=== PATIENT | male | born 1950 | race American Indian/Alaskan Native ===

== ENCOUNTER 2016-10-05 12:11 | Emergency (ER) | payer MEDICARE ==
[2016-10-05] MEDS ORDERED: NORCO 5/325 PO ONE (17:25)
[2016-10-05 17:40] LABS: Basophils % (Auto) 0.4 % (0.0-1.8); Eosinophils % (Auto) 0.8 % (0.0-4.3); Hematocrit 35.3 % (35.5-45.6); Hemoglobin 11.5 gm/dl (11.8-15.2); Mean Corpuscular HGB Conc 33 % (32-34); Mean Corpuscular Hemoglobin 32 pg (28-32); Mean Corpuscular Volume 99 fl (84-94); Platelet Count 185 K/mm3 (140-440); Red Blood Count 3.58 M/mm3 (3.65-5.03); Red Cell Distribution Width 15.6 % (13.2-15.2); White Blood Count 5.7 K/mm3 (4.5-11.0)
--- NOTE | 2016-10-05 17:42 | Emergency Department Report ---
ED General Adult HPI - General Chief complaint: Pain General Stated complaint: LEFT SIDE/FEET/TESTICLES Time Seen by Provider: 10/05/16 17:10 Source: patient, family Mode of arrival: Ambulatory Limitations: Other (dementia) - History of Present Illness Initial comments: 66-year-old male with a past medical history hypertension, end-stage renal disease on dialysis, insulin-dependent diabetes, and dementia presents to the hospital complains of left-sided pain for the past 5 days. Pain is either at the left lower chest wall left abdomen. Intermittent, worse with movement, unable to characterize pain. Patient has significant dementia and is only oriented to self and states year is [address] [facility]. His is at the bedside providing most of history of present illness. Patient currently denies any pain other than pain to his bilateral feet. Past medical history of diabetic neuropathy reported. No recent trauma, shortness of breath, nausea, vomiting, melena, hematochezia, or fever. Patient does not make urine since he is a dialysis patient and has been compliant with last dialysis yesterday. No previous abdominal surgeries reported. And a bilateral testicular pain for the last 5 days as well. Patient has been unable to ambulate due to pain in feet and abdomen. PMD: Dr. Eliana Diaz, stratigrapher : Dr. Hector, commissioning agent: Dr. Canales - Related Data Home Medications Medication Instructions Recorded Confirmed Last Taken Allopurinol [Zyloprim] 300 mg PO QDAY 01/12/16 10/05/16 10/04/16 Donepezil HCl 10 mg PO HS 01/12/16 10/05/16 10/04/16 Sevelamer Carbonate [Renvela] 800 mg PO TIDWM 01/12/16 10/05/16 10/04/16 Sodium Bicarbonate 650 mg PO BID 01/12/16 10/05/16 10/04/16 Vitamin B Complex [B Complex] 1 each PO DAILY 01/12/16 10/05/16 10/04/16 Aspirin [Adult Low Dose Aspirin EC] 81 mg PO QDAY 10/05/16 10/05/16 10/04/16 AtorvaSTATin [Lipitor] 80 mg PO QDAY 10/05/16 10/05/16 10/04/16 Gabapentin [Neurontin] 300 mg PO BID 10/05/16 10/05/16 10/04/16 Losartan [Cozaar] 50 mg PO QDAY 10/05/16 10/05/16 10/04/16 Metoprolol [Lopressor TAB] 25 mg PO BID 10/05/16 10/05/16 10/04/16 Vitamin D3 Complete Caplet 1 cap PO QDAY 10/05/16 10/05/16 10/04/16 Previous Rx's Medication Instructions Recorded Last Taken Type amLODIPine [Norvasc] 10 mg PO QDAY #30 tablet 12/09/13 10/04/16 Rx HYDROcodone/APAP 5-325 [Lebec 1 each PO Q6HR PRN #14 tablet 10/05/16 Unknown Rx 5/325] Allergies Allergy/AdvReac Type Severity Reaction Status Date / Time No Known Allergies Allergy Unverified 12/01/13 10:54 ED Review of Systems ROS: Stated complaint: LEFT SIDE/FEET/TESTICLES Other details as noted in HPI Comment: All other systems reviewed and negative Other: with help of Constitutional: No fevers Neck: Denies pain Respiratory: Denies cough wheezing shortness of breath Cardiovascular: as per hpi GI: as per hpi : as per hpi Musculoskeletal: Denies back pain Skin: Denies rash, lesions, erythema Neurologic: Denies headache ED Past Medical Hx - Past Medical History Hx Hypertension: Yes Hx Heart Attack/AMI: Yes Hx Diabetes: Yes Hx Renal Disease: Yes (t,thr,sat dialysis) Hx Arthritis: Yes Hx Dementia: Yes (Dx of early dementia 2013) Additional medical history: echo 12/2015, EF 50% diastolic dysfunction see report for valve findings - Social History Smoking Status: Never Smoker - Medications Home Medications: Home Medications Medication Instructions Recorded Confirmed Last Taken Type amLODIPine [Norvasc] 10 mg PO QDAY #30 tablet 12/09/13 10/05/16 10/04/16 Rx Allopurinol [Zyloprim] 300 mg PO QDAY 01/12/16 10/05/16 10/04/16 History Donepezil HCl 10 mg PO HS 01/12/16 10/05/16 10/04/16 History Sevelamer Carbonate [Renvela] 800 mg PO TIDWM 01/12/16 10/05/16 10/04/16 History Sodium Bicarbonate 650 mg PO BID 01/12/16 10/05/16 10/04/16 History Vitamin B Complex [B Complex] 1 each PO DAILY 01/12/16 10/05/16 10/04/16 History Aspirin [Adult Low Dose Aspirin EC] 81 mg PO QDAY 10/05/16 10/05/16 10/04/16 History AtorvaSTATin [Lipitor] 80 mg PO QDAY 10/05/16 10/05/16 10/04/16 History Gabapentin [Neurontin] 300 mg PO BID 10/05/16 10/05/16 10/04/16 History HYDROcodone/APAP 5-325 [[place] 1 each PO Q6HR PRN #14 tablet 10/05/16 Unknown Rx 5/325] Losartan [Cozaar] 50 mg PO QDAY 10/05/16 10/05/16 10/04/16 History Metoprolol [Lopressor TAB] 25 mg PO BID 10/05/16 10/05/16 10/04/16 History Vitamin D3 Complete Caplet 1 cap PO QDAY 10/05/16 10/05/16 10/04/16 History ED Physical Exam - General Limitations: No Limitations - Other Other exam information: General: No limitations, patient is alert in no acute distress Head exam: Atraumatic, normocephalic Eyes exam: Normal appearance ENT: Moist mucous membrane, normal oropharynx Neck exam: Normal inspection, full range of motion, no meningismus nontender Respiratory exam: Clear to auscultation bilateral, no wheezes, rales, crackles Cardiovascular: Normal rate and rhythm, systolic murmur, chest wall nontender : Uncircumcised, no penile lesions or discharge, generalized tenderness bilateral testicles without any erythema, edema, and vertical lie of the testes. Abdomen: Soft, nondistended, and nontender, with normal bowel sounds, no rebound, or guarding Extremity: Full range of motion normal inspection no deformity, 2+ DP pulse mild tenderness to palpation of the foot. No sores or wounds to the feet Back: Normal Inspection, full range of motion, no tenderness Neurologic: Alert, oriented x1, cranial nerves intact, no motor or sensory deficit Psychiatric: normal affect, normal mood Skin: Warm, dry, intact ED Course Vital Signs 10/05/16 10/05/16 10/05/16 16:57 16:59 17:00 Pulse Rate Respiratory Rate Blood Pressure 182/71 O2 Sat by Pulse 98 67 L 100 Oximetry 10/05/16 10/05/16 10/05/16 17:01 17:03 17:25 Pulse Rate 60 61 Respiratory 12 14 Rate Blood Pressure 182/71 182/71 182/71 O2 Sat by Pulse 100 93 Oximetry 10/05/16 10/05/16 10/05/16 17:27 17:29 17:31 Pulse Rate 61 61 61 Respiratory 14 15 14 Rate Blood Pressure 182/71 182/71 182/71 O2 Sat by Pulse 94 96 Oximetry 10/05/16 10/05/16 10/05/16 17:33 17:35 17:37 Pulse Rate 61 59 L 60 Respiratory 12 17 15 Rate Blood Pressure 182/71 182/71 182/71 O2 Sat by Pulse 89 80 L Oximetry 10/05/16 10/05/16 10/05/16 17:39 17:40 18:16 Pulse Rate 60 59 L Respiratory 18 17 12 Rate Blood Pressure 182/71 182/71 O2 Sat by Pulse 100 Oximetry 10/05/16 10/05/16 10/05/16 19:22 19:23 19:25 Pulse Rate 63 64 63 Respiratory 17 18 14 Rate Blood Pressure 176/76 176/76 176/76 O2 Sat by Pulse 97 100 100 Oximetry 10/05/16 10/05/16 10/05/16 19:27 19:29 19:31 Pulse Rate 66 64 64 Respiratory 11 L 8 L 13 Rate Blood Pressure 176/76 176/76 176/76 O2 Sat by Pulse Oximetry 10/05/16 10/05/16 10/05/16 19:33 19:35 19:37 Pulse Rate 63 64 65 Respiratory 16 12 14 Rate Blood Pressure 176/76 176/76 176/76 O2 Sat by Pulse 100 88 Oximetry 10/05/16 10/05/16 10/05/16 19:39 19:41 19:43 Pulse Rate 64 64 65 Respiratory 9 L 15 13 Rate Blood Pressure 176/76 176/76 176/76 O2 Sat by Pulse Oximetry 10/05/16 10/05/16 10/05/16 19:45 19:47 19:49 Pulse Rate 65 65 65 Respiratory 12 17 14 Rate Blood Pressure 176/76 176/76 176/76 O2 Sat by Pulse 83 L 98 Oximetry 10/05/16 10/05/16 10/05/16 19:51 19:53 19:55 Pulse Rate 65 64 66 Respiratory 15 16 16 Rate Blood Pressure 176/76 176/76 176/76 O2 Sat by Pulse 100 100 100 Oximetry 10/05/16 10/05/16 10/05/16 19:57 19:59 20:01 Pulse Rate 66 67 66 Respiratory 15 17 12 Rate Blood Pressure 176/76 176/76 185/77 O2 Sat by Pulse 100 100 Oximetry 10/05/16 10/05/16 10/05/16 20:03 20:05 20:07 Pulse Rate 68 66 68 Respiratory 14 13 13 Rate Blood Pressure 185/77 185/77 185/77 O2 Sat by Pulse 97 98 100 Oximetry 10/05/16 10/05/16 10/05/16 20:09 20:11 20:13 Pulse Rate 68 68 67 Respiratory 14 15 15 Rate Blood Pressure 185/77 185/77 185/77 O2 Sat by Pulse 100 100 100 Oximetry 10/05/16 10/05/16 10/05/16 20:15 20:17 20:19 Pulse Rate 68 66 66 Respiratory 11 L 17 17 Rate Blood Pressure 185/77 185/77 185/77 O2 Sat by Pulse 100 100 100 Oximetry 10/05/16 10/05/16 10/05/16 20:21 20:23 20:25 Pulse Rate 65 66 66 Respiratory 15 10 L 17 Rate Blood Pressure 185/77 185/77 185/77 O2 Sat by Pulse 100 100 98 Oximetry 10/05/16 10/05/16 10/05/16 20:27 20:29 20:31 Pulse Rate 66 67 66 Respiratory 10 L 16 11 L Rate Blood Pressure 185/77 185/77 185/77 O2 Sat by Pulse 100 99 100 Oximetry 10/05/16 10/05/16 10/05/16 20:33 20:35 20:37 Pulse Rate 65 66 66 Respiratory 15 11 L 15 Rate Blood Pressure 185/77 185/77 185/77 O2 Sat by Pulse 100 100 100 Oximetry 10/05/16 10/05/16 20:39 20:41 Pulse Rate 65 65 Respiratory 14 16 Rate Blood Pressure 185/77 185/77 O2 Sat by Pulse 100 100 Oximetry - Reevaluation(s) Reevaluation #1: 10/05/16 21:27 Patient remained stable relatively pain-free in the ED. Received Lebec for pain hours earlier. Kayexalate order for mild hyperkalemia as suggested by stratigrapher. Repeat troponin is decreased compared to previous therefore likely chronically increased secondary to end-stage renal disease. ED Medical Decision Making - Lab Data Result diagrams: 10/05/16 17:29 10/05/16 17:29 Lab Results 10/05/16 10/05/16 10/05/16 Range/Units 17:29 17:29 17:29 WBC 5.7 (4.5-11.0) K/mm3 RBC 3.58 L (3.65-5.03) M/mm3 Hgb 11.5 L (11.8-15.2) gm/dl Hct 35.3 L (35.5-45.6) % MCV 99 H (84-94) fl MCH 32 (28-32) pg MCHC 33 (32-34) % RDW 15.6 H (13.2-15.2) % Plt Count 185 (140-440) K/mm3 Lymph % (Auto) 25.5 (13.4-35.0) % [place] % (Auto) 9.5 H (0.0-7.3) % Eos % (Auto) 0.8 (0.0-4.3) % Baso % (Auto) 0.4 (0.0-1.8) % Lymph # 1.4 (1.2-5.4) K/mm3 [place] # 0.5 (0.0-0.8) K/mm3 Eos # 0.0 (0.0-0.4) K/mm3 Baso # 0.0 (0.0-0.1) K/mm3 Seg Neutrophils % 63.8 (40.0-70.0) % Seg Neutrophils # 3.6 (1.8-7.7) K/mm3 Sodium 142 (137-145) mmol/L Potassium 5.2 H (3.6-5.0) mmol/L Chloride 100.6 (98-107) mmol/L Carbon Dioxide 26 (22-30) mmol/L Anion Gap 21 mmol/L BUN 53 H (9-20) mg/dL Creatinine 10.1 H (0.8-1.5) mg/dL Estimated GFR 6 ml/min BUN/Creatinine Ratio 5.24 % Glucose 118 H (75-100) mg/dL Calcium 8.8 (8.4-10.2) mg/dL Total Bilirubin 0.30 (0.1-1.2) mg/dL Direct Bilirubin < 0.2 (0-0.2) mg/dL Indirect Bilirubin 0.1 mg/dL AST 6 (5-40) units/L ALT < 5 L (7-56) units/L Alkaline Phosphatase 65 (35-129) units/L Total Creatine Kinase 41 L (55-170) units/L CK-MB (CK-2) 1.4 (0.0-4.0) ng/mL CK-MB (CK-2) Rel Index 3.4 (0-4) Troponin T 0.081 H (0.00-0.029) ng/mL Total Protein 6.4 (6.3-8.2) g/dL Albumin 3.9 (3.9-5) g/dL Albumin/Globulin Ratio 1.6 % Triglycerides 77 (2-149) mg/dL Cholesterol 176 (50-199) mg/dL LDL Cholesterol Direct 87 (50-130) mg/dL HDL Cholesterol 74 H (40-59) mg/dL Cholesterol/HDL Ratio 2.37 % Lipase 35 (13-60) units/L 05/12/17 Range/Units 20:49 WBC (4.5-11.0) K/mm3 RBC (3.65-5.03) M/mm3 Hgb (11.8-15.2) gm/dl Hct (35.5-45.6) % MCV (84-94) fl MCH (28-32) pg MCHC (32-34) % RDW (13.2-15.2) % Plt Count (140-440) K/mm3 Lymph % (Auto) (13.4-35.0) % [place] % (Auto) (0.0-7.3) % Eos % (Auto) (0.0-4.3) % Baso % (Auto) (0.0-1.8) % Lymph # (1.2-5.4) K/mm3 [place] # (0.0-0.8) K/mm3 Eos # (0.0-0.4) K/mm3 Baso # (0.0-0.1) K/mm3 Seg Neutrophils % (40.0-70.0) % Seg Neutrophils # (1.8-7.7) K/mm3 Sodium (137-145) mmol/L Potassium (3.6-5.0) mmol/L Chloride (98-107) mmol/L Carbon Dioxide (22-30) mmol/L Anion Gap mmol/L BUN (9-20) mg/dL Creatinine (0.8-1.5) mg/dL Estimated GFR ml/min BUN/Creatinine Ratio % Glucose (75-100) mg/dL Calcium (8.4-10.2) mg/dL Total Bilirubin (0.1-1.2) mg/dL Direct Bilirubin (0-0.2) mg/dL Indirect Bilirubin mg/dL AST (5-40) units/L ALT (7-56) units/L Alkaline Phosphatase (35-129) units/L Total Creatine Kinase 41 L (55-170) units/L CK-MB (CK-2) 1.5 (0.0-4.0) ng/mL CK-MB (CK-2) Rel Index 3.6 (0-4) Troponin T 0.079 H (0.00-0.029) ng/mL Total Protein (6.3-8.2) g/dL Albumin (3.9-5) g/dL Albumin/Globulin Ratio % Triglycerides (2-149) mg/dL Cholesterol (50-199) mg/dL LDL Cholesterol Direct (50-130) mg/dL HDL Cholesterol (40-59) mg/dL Cholesterol/HDL Ratio % Lipase (13-60) units/L - EKG Data -: EKG Interpreted by Me (nsr rate 65, pac) - EKG Data When compared to previous EKG there are: changes noted ( 01/11/16improved previous lat t wave inv) - Radiology Data Radiology results: report reviewed, image reviewed (cxr: naf) CT abdomen and pelvis noncontrast: No acute process. Atrophy of the kidneys with bilateral renal cyst. Prostate enlargement which is stable Testicular ultrasound with Doppler: Negative. - Medical Decision Making Patient has been comfortable in the ED and was only given Lebec because stated he was in pain although patient denied being in pain. Pain seemed to be at the left lower rib and left upper abdomen. EKG, cardiac enzymes unremarkable and stable. Chest x-ray, CT abdomen and pelvis, and ultrasound also unremarkable. No acute lab abnormalities with exception of mildly elevated troponin as discussed and mildly elevated potassium. Patient was provided Kayexalate after discussion with stratigrapher. Per discharge patient home with pain medicine to take as needed. - Differential Diagnosis kidney stone, musculoskeletal pain, intra-abdominal infection, IN Critical Care Time: No Critical care attestation.: If time is entered above; I have spent that time in minutes in the direct care of this critically ill patient, excluding procedure time. ED Disposition Clinical Impression: ESRD (end stage renal disease) on dialysis, Left sided abdominal pain of unknown cause, Dementia, Hyperkalemia, HTN (hypertension), Testicular pain, Diabetes mellitus Disposition: DISCHARGED TO HOME OR SELFCARE Is pt being admited?: No Does the pt Need Aspirin: No Condition: Stable Instructions: Abdominal Pain (ED), Chest Pain (ED), Testicle Pain (ED) Additional Instructions: Follow up with your dialysis as scheduled tomorrow. Return if symptoms worsen. Take the medication as prescribed Prescriptions: HYDROcodone/APAP 5-325 [Lebec 5/325] 1 each PO Q6HR PRN #14 tablet PRN Reason: Pain Referrals: PRIMARY CARE, [Primary Care Provider] - 2-3 Days Time of Disposition: 21:31
--- NOTE | 2016-10-05 18:43 | Cat Scan Report ---
FINAL REPORT EXAM: CT ABDOMEN PELVIS WO CON HISTORY: left chest/abd pain TECHNIQUE: Standard unenhanced CT of the abdomen and pelvis. Coronal and sagittal reconstruction was also performed. PRIORS: CT a/P 01/16/2016 FINDINGS: Within the abdomen, the liver, spleen, pancreas, gallbladder, and adrenal glands are unremarkable. Numerous low-density cysts are present in the atrophic kidneys, unchanged. No evidence for retroperitoneal or pelvic lymphadenopathy is seen. The bowel loops have normal caliber. No soft tissue mass, fluid collection, inflammatory change, or free air is seen within the abdomen or pelvis. The appendix is normal. Moderate calcification of the aorta is present. Extensive vascular calcifications present throughout. Within the pelvis, the bladder is unremarkable. The prostate is mildly enlarged but stable. No evidence for mass or lymphadenopathy is seen in the pelvis. Images through the upper abdomen include the lung bases which are expanded and clear. Bony structures show severe disc space narrowing at the L5-S1 level. IMPRESSION: 1. Stable exam. No acute intra-abdominal process noted. 2. atrophy of the kidneys with bilateral renal cysts again noted 3. Prostate enlargement is stable.
[2016-10-05 18:53] LABS: Creatine Kinase MB 1.4 ng/mL (0.0-4.0)
[2016-10-05 18:54] LABS: Albumin 3.9 g/dL (3.9-5); Albumin/Globulin Ratio 1.6 %; Alkaline Phosphatase 65 units/L (35-129); Anion Gap 21 mmol/L; BUN/Creatinine Ratio 5.24; Blood Urea Nitrogen 53 mg/dL (9-20); Calcium 8.8 mg/dL (8.4-10.2); Carbon Dioxide 26 mmol/L (22-30); Chloride 100.6 mmol/L (98-107); Glucose 118 mg/dL (75-100); Lipase 35 units/L (13-60); Potassium 5.2 mmol/L (3.6-5.0); Sodium 142 mmol/L (137-145); Total Protein 6.4 g/dL (6.3-8.2)
[2016-10-05 19:03] LABS: Alanine Aminotransferase < 5 units/L (7-56); Bilirubin,Direct < 0.2 mg/dL (0-0.2); Bilirubin,Indirect 0.1 mg/dL
--- NOTE | 2016-10-05 19:24 | Ultrasound Report ---
FINAL REPORT EXAM: US TESTICULAR DOPPLER COMP HISTORY: Bilateral testicular pain . TECHNIQUE: Ultrasound of scrotum PRIORS: Ultrasound scrotum 01/12/2016 FINDINGS: Examination of the testicles demonstrates both to be normal in size and normal and homogeneous in echogenicity with normal blood flow bilaterally. No focal abnormality is noted in either testicle. The right testicle measures 3.9 x 1.5 x 2.9 cm and the left measures 3.8 x 1.5 x 2.3 cm. Both epididymides appear normal in size and echogenicity with normal blood flow. No focal abnormality is noted. A cyst seen previously in the left epididymis is not currently identified. No evidence for hydroceles or varicoceles are present bilaterally. IMPRESSION: Negative testicular ultrasound
[2016-10-05] MEDS ORDERED: KIONEX PO ONE (20:43)
[2016-10-05 21:26] LABS: Creatine Kinase MB 1.5 ng/mL (0.0-4.0)
[2016-10-05 21:38] VITALS: BP 145/63
--- NOTE | 2016-10-06 09:27 | XRay Report ---
AP CHEST: HISTORY: Left-sided chest pain AP view of the chest demonstrates a normal mediastinal and cardiac contour with clear lungs and normal bony and soft tissue structures. No significant change since 01/12/16. IMPRESSION: Unremarkable AP chest.
== END 2016-10-05 21:48 | disposition home or self-care (01) ==
LOC: ED 12:11
DX: N50.819 Testicular pain, unspecified (principal); I12.0 Hypertensive chronic kidney disease with stage 5 chronic kidney disease or end stage renal disease; N18.6 End stage renal disease; R10.30 Lower abdominal pain, unspecified; F03.90 Unspecified dementia, unspecified severity, without behavioral disturbance, psychotic disturbance, mood disturbance, and anxiety; E87.5 Hyperkalemia; E11.9 Type 2 diabetes mellitus without complications; I25.2 Old myocardial infarction
CPT/HCPCS: 36415; 71010; 74176; 80048; 80061; 80074; 82550; 82553; 83690; 84484; 85025; 93005; 93010; 93975

== ENCOUNTER 2017-04-15 05:56 | Emergency (ER) | payer MEDICARE ==
[2017-04-15 07:16] LABS: Basophils % (Auto) 0.3 % (0.0-1.8); Eosinophils % (Auto) 1.3 % (0.0-4.3); Hematocrit 33.9 % (35.5-45.6); Mean Corpuscular HGB Conc 32 % (32-34); Mean Corpuscular Hemoglobin 32 pg (28-32); Mean Corpuscular Volume 99 fl (84-94); Platelet Count 212 K/mm3 (140-440); Red Blood Count 3.41 M/mm3 (3.65-5.03); White Blood Count 9.6 K/mm3 (4.5-11.0)
[2017-04-15 07:31] LABS: Albumin 3.7 g/dL (3.9-5); Bilirubin,Total 0.5 mg/dL (0.1-1.2); Calcium 10.2 mg/dL (8.4-10.2); Chloride 98.1 mmol/L (98-107); Magnesium 2.8 mg/dL (1.7-2.3); Potassium 4.9 mmol/L (3.6-5.0); Total Protein 7.4 g/dL (6.3-8.2)
--- NOTE | 2017-04-15 07:33 | Cat Scan Report ---
FINAL REPORT EXAM: CT HEAD/BRAIN WO CON HISTORY: AMS TECHNIQUE: CT imaging is acquired through the brain without contrast. Transaxial reformations are provided. PRIORS: 12/06/2013 FINDINGS: Ventricles and CSF spaces are proportionately enlarged, consistent with parenchymal atrophy. Scattered deep and subcortical white matter hypodense foci are confluent in some areas and are compatible with microvascular angiopathy. No acute intracranial hemorrhage or mass effect. Calvarium and superficial scalp are intact. Partially visualized paranasal sinuses are clear. Mastoids are clear. IMPRESSION: No acute intracranial abnormality. There are chronic sequela of atrophy and microvascular angiopathy.
--- NOTE | 2017-04-15 09:38 | Emergency Department Report ---
ED General Adult HPI - General Chief complaint: Altered Mental Status Stated complaint: AMS Time Seen by Provider: 04/15/17 07:08 Source: EMS Mode of arrival: Stretcher Limitations: Altered Mental Status - History of Present Illness Initial comments: Patient is a 67-year-old male past medical history of dementia and end-stage renal disease who presents with altered mental status. History is obtained by patient's relative and patient. Patient was apparently confused and slow to respond when he was being transferred to dialysis. They state that he may have been shaking. However he's been answering questions appropriately. Patient denies having any headache any chest pain any shortness of breath any abdominal pain or any diarrhea. He denies having any fevers. Patient is alert and oriented 2 at baseline. Patient gets dialysis Saturday. - Related Data Home Medications Medication Instructions Recorded Confirmed Last Taken Allopurinol [Zyloprim] 300 mg PO QDAY 01/12/16 04/15/17 1 Day Ago ~04/14/17 Donepezil HCl 10 mg PO HS 01/12/16 04/15/17 1 Day Ago ~04/14/17 Sevelamer Carbonate [Renvela] 800 mg PO TIDWM 01/12/16 04/15/17 1 Day Ago ~04/14/17 Sodium Bicarbonate 650 mg PO BID 01/12/16 04/15/17 1 Day Ago ~04/14/17 Vitamin B Complex [B Complex] 1 each PO DAILY 01/12/16 04/15/17 1 Day Ago ~04/14/17 Aspirin [Adult Low Dose Aspirin EC] 81 mg PO QDAY 10/05/16 04/15/17 1 Day Ago ~04/14/17 AtorvaSTATin [Lipitor] 80 mg PO QDAY 10/05/16 04/15/17 1 Day Ago ~04/14/17 Gabapentin [Neurontin] 300 mg PO BID 10/05/16 04/15/17 1 Day Ago ~04/14/17 Losartan [Cozaar] 50 mg PO QDAY 10/05/16 04/15/17 1 Day Ago ~04/14/17 Metoprolol [Lopressor TAB] 25 mg PO BID 10/05/16 04/15/17 1 Day Ago ~04/14/17 Vitamin D3 Complete Caplet 1 cap PO QDAY 10/05/16 04/15/17 1 Day Ago ~04/14/17 Previous Rx's Medication Instructions Recorded Last Taken Type amLODIPine [Norvasc] 10 mg PO QDAY #30 tablet 12/09/13 1 Day Ago Rx ~04/14/17 HYDROcodone/APAP 5-325 [[place] 1 each PO Q6HR PRN #14 tablet 10/05/16 1 Day Ago Rx 5/325] ~04/14/17 Allergies Allergy/AdvReac Type Severity Reaction Status Date / Time No Known Allergies Allergy Verified 04/15/17 06:04 ED Review of Systems ROS: Stated complaint: AMS Other details as noted in HPI Constitutional: denies: chills, fever Eyes: denies: eye pain, eye discharge, vision change ENT: denies: ear pain, throat pain Respiratory: denies: cough, shortness of breath, wheezing Cardiovascular: denies: chest pain, palpitations Endocrine: no symptoms reported Gastrointestinal: denies: abdominal pain, nausea, diarrhea Genitourinary: denies: urgency, dysuria Musculoskeletal: denies: back pain, joint swelling, arthralgia Skin: denies: rash, lesions Neurological: confusion. denies: headache, weakness, paresthesias Psychiatric: denies: anxiety, depression Hematological/Lymphatic: denies: easy bleeding, easy bruising ED Past Medical Hx - Past Medical History Previous Medical History?: Yes Hx Hypertension: Yes Hx Heart Attack/AMI: Yes Hx Diabetes: Yes Hx Renal Disease: Yes (t,thr,sat dialysis) Hx Arthritis: Yes Hx Dementia: Yes (Dx of early dementia 2013) Additional medical history: echo 12/2015, EF 50% diastolic dysfunction see report for valve findings - Surgical History Past Surgical History?: Yes Additional Surgical History: dialysis graft - Social History Smoking Status: Unknown if ever smoked - Medications Home Medications: Home Medications Medication Instructions Recorded Confirmed Last Taken Type amLODIPine [Norvasc] 10 mg PO QDAY #30 tablet 12/09/13 04/15/17 1 Day Ago Rx ~04/14/17 Allopurinol [Zyloprim] 300 mg PO QDAY 01/12/16 04/15/17 1 Day Ago History ~04/14/17 Donepezil HCl 10 mg PO HS 01/12/16 04/15/17 1 Day Ago History ~04/14/17 Sevelamer Carbonate [Renvela] 800 mg PO TIDWM 01/12/16 04/15/17 1 Day Ago History ~04/14/17 Sodium Bicarbonate 650 mg PO BID 01/12/16 04/15/17 1 Day Ago History ~04/14/17 Vitamin B Complex [B Complex] 1 each PO DAILY 01/12/16 04/15/17 1 Day Ago History ~04/14/17 Aspirin [Adult Low Dose Aspirin EC] 81 mg PO QDAY 10/05/16 04/15/17 1 Day Ago History ~04/14/17 AtorvaSTATin [Lipitor] 80 mg PO QDAY 10/05/16 04/15/17 1 Day Ago History ~04/14/17 Gabapentin [Neurontin] 300 mg PO BID 10/05/16 04/15/17 1 Day Ago History ~04/14/17 HYDROcodone/APAP 5-325 [[place] 1 each PO Q6HR PRN #14 tablet 10/05/16 04/15/17 1 Day Ago Rx 5/325] ~04/14/17 Losartan [Cozaar] 50 mg PO QDAY 10/05/16 04/15/17 1 Day Ago History ~04/14/17 Metoprolol [Lopressor TAB] 25 mg PO BID 10/05/16 04/15/17 1 Day Ago History ~04/14/17 Vitamin D3 Complete Caplet 1 cap PO QDAY 10/05/16 04/15/17 1 Day Ago History ~04/14/17 ED Physical Exam - General Limitations: Altered Mental Status General appearance: alert, in no apparent distress - Head Head exam: Present: atraumatic, normocephalic - Eye Eye exam: Present: normal appearance - ENT ENT exam: Present: mucous membranes moist - Neck Neck exam: Present: normal inspection - Respiratory Respiratory exam: Present: normal lung sounds bilaterally. Absent: respiratory distress - Cardiovascular Cardiovascular Exam: Present: regular rate, normal rhythm. Absent: systolic murmur, diastolic murmur, rubs, gallop - GI/Abdominal GI/Abdominal exam: Present: soft, normal bowel sounds - Rectal Rectal exam: Present: deferred - Extremities Exam Extremities exam: Present: normal inspection - Back Exam Back exam: Present: normal inspection - Neurological Exam Neurological exam: Present: alert, oriented X3 - Psychiatric Psychiatric exam: Present: normal affect, normal mood - Skin Skin exam: Present: warm, dry, intact, normal color. Absent: rash ED Course Vital Signs 04/15/17 04/15/17 04/15/17 06:05 06:15 06:25 Temperature 98.7 F Pulse Rate 69 71 Respiratory 14 14 16 Rate Blood Pressure 185/77 Blood Pressure 185/77 [Right] O2 Sat by Pulse 98 98 98 Oximetry 04/15/17 04/15/17 04/15/17 06:30 06:45 07:19 Temperature Pulse Rate 70 70 Respiratory 13 13 Rate Blood Pressure 188/81 185/77 185/77 Blood Pressure [Right] O2 Sat by Pulse 97 97 96 Oximetry 04/15/17 04/15/17 04/15/17 07:30 07:45 08:00 Temperature Pulse Rate Respiratory Rate Blood Pressure 197/81 188/81 178/81 Blood Pressure [Right] O2 Sat by Pulse 97 98 98 Oximetry 04/15/17 04/15/17 04/15/17 08:30 09:00 09:30 Temperature Pulse Rate Respiratory Rate Blood Pressure 169/80 176/80 175/79 Blood Pressure [Right] O2 Sat by Pulse 98 98 99 Oximetry ED Medical Decision Making - Lab Data Result diagrams: 04/15/17 06:43 04/15/17 06:43 Lab Results 04/15/17 04/15/17 04/15/17 Range/Units 06:43 06:43 06:43 WBC 9.6 (4.5-11.0) K/mm3 RBC 3.41 L (3.65-5.03) M/mm3 Hgb 11.0 L (11.8-15.2) gm/dl Hct 33.9 L (35.5-45.6) % MCV 99 H (84-94) fl MCH 32 (28-32) pg MCHC 32 (32-34) % RDW 14.0 (13.2-15.2) % Plt Count 212 (140-440) K/mm3 Lymph % (Auto) 16.5 (13.4-35.0) % [place] % (Auto) 9.1 H (0.0-7.3) % Eos % (Auto) 1.3 (0.0-4.3) % Baso % (Auto) 0.3 (0.0-1.8) % Lymph # 1.6 (1.2-5.4) K/mm3 [place] # 0.9 H (0.0-0.8) K/mm3 Eos # 0.1 (0.0-0.4) K/mm3 Baso # 0.0 (0.0-0.1) K/mm3 Seg Neutrophils % 72.8 H (40.0-70.0) % Seg Neutrophils # 7.0 (1.8-7.7) K/mm3 Sodium 141 (137-145) mmol/L Potassium 4.9 (3.6-5.0) mmol/L Chloride 98.1 (98-107) mmol/L Carbon Dioxide 27 (22-30) mmol/L Anion Gap 21 mmol/L BUN 43 H (9-20) mg/dL Creatinine 7.8 H (0.8-1.5) mg/dL Estimated GFR 8 ml/min BUN/Creatinine Ratio 6 % Glucose 100 (75-100) mg/dL Lactic Acid 1.40 (0.7-2.0) mmol/L Calcium 10.2 (8.4-10.2) mg/dL Magnesium 2.80 H (1.7-2.3) mg/dL Total Bilirubin 0.50 (0.1-1.2) mg/dL AST 10 (5-40) units/L ALT 6 L (7-56) units/L Alkaline Phosphatase 50 (35-129) units/L Total Protein 7.4 (6.3-8.2) g/dL Albumin 3.7 L (3.9-5) g/dL Albumin/Globulin Ratio 1.0 % TSH (0.270-4.200) mlU/mL Salicylates (2.8-20.0) mg/dL Acetaminophen (10.0-30.0) ug/mL Plasma/Serum Alcohol (0-0.07) gm% 04/15/17 04/15/17 04/15/17 Range/Units 06:43 06:43 06:43 WBC (4.5-11.0) K/mm3 RBC (3.65-5.03) M/mm3 Hgb (11.8-15.2) gm/dl Hct (35.5-45.6) % MCV (84-94) fl MCH (28-32) pg MCHC (32-34) % RDW (13.2-15.2) % Plt Count (140-440) K/mm3 Lymph % (Auto) (13.4-35.0) % [place] % (Auto) (0.0-7.3) % Eos % (Auto) (0.0-4.3) % Baso % (Auto) (0.0-1.8) % Lymph # (1.2-5.4) K/mm3 [place] # (0.0-0.8) K/mm3 Eos # (0.0-0.4) K/mm3 Baso # (0.0-0.1) K/mm3 Seg Neutrophils % (40.0-70.0) % Seg Neutrophils # (1.8-7.7) K/mm3 Sodium (137-145) mmol/L Potassium (3.6-5.0) mmol/L Chloride (98-107) mmol/L Carbon Dioxide (22-30) mmol/L Anion Gap mmol/L BUN (9-20) mg/dL Creatinine (0.8-1.5) mg/dL Estimated GFR ml/min BUN/Creatinine Ratio % Glucose (75-100) mg/dL Lactic Acid (0.7-2.0) mmol/L Calcium (8.4-10.2) mg/dL Magnesium (1.7-2.3) mg/dL Total Bilirubin (0.1-1.2) mg/dL AST (5-40) units/L ALT (7-56) units/L Alkaline Phosphatase (35-129) units/L Total Protein (6.3-8.2) g/dL Albumin (3.9-5) g/dL Albumin/Globulin Ratio % TSH 1.300 (0.270-4.200) mlU/mL Salicylates < 0.3 L (2.8-20.0) mg/dL Acetaminophen < 15.0 (10.0-30.0) ug/mL Plasma/Serum Alcohol (0-0.07) gm% 04/15/17 04/15/17 Range/Units 06:43 08:58 WBC (4.5-11.0) K/mm3 RBC (3.65-5.03) M/mm3 Hgb (11.8-15.2) gm/dl Hct (35.5-45.6) % MCV (84-94) fl MCH (28-32) pg MCHC (32-34) % RDW (13.2-15.2) % Plt Count (140-440) K/mm3 Lymph % (Auto) (13.4-35.0) % [place] % (Auto) (0.0-7.3) % Eos % (Auto) (0.0-4.3) % Baso % (Auto) (0.0-1.8) % Lymph # (1.2-5.4) K/mm3 [place] # (0.0-0.8) K/mm3 Eos # (0.0-0.4) K/mm3 Baso # (0.0-0.1) K/mm3 Seg Neutrophils % (40.0-70.0) % Seg Neutrophils # (1.8-7.7) K/mm3 Sodium (137-145) mmol/L Potassium (3.6-5.0) mmol/L Chloride (98-107) mmol/L Carbon Dioxide (22-30) mmol/L Anion Gap mmol/L BUN (9-20) mg/dL Creatinine (0.8-1.5) mg/dL Estimated GFR ml/min BUN/Creatinine Ratio % Glucose (75-100) mg/dL Lactic Acid 1.60 (0.7-2.0) mmol/L Calcium (8.4-10.2) mg/dL Magnesium (1.7-2.3) mg/dL Total Bilirubin (0.1-1.2) mg/dL AST (5-40) units/L ALT (7-56) units/L Alkaline Phosphatase (35-129) units/L Total Protein (6.3-8.2) g/dL Albumin (3.9-5) g/dL Albumin/Globulin Ratio % TSH (0.270-4.200) mlU/mL Salicylates (2.8-20.0) mg/dL Acetaminophen (10.0-30.0) ug/mL Plasma/Serum Alcohol < 0.01 (0-0.07) gm% - EKG Data -: EKG Interpreted by Me - EKG Data 04/15/17 09:42 EKG shows atrial fibrillation rate [address] segment elevation no T wave inversion signs of LVH normal axis - Radiology Data Radiology results: report reviewed, image reviewed CT head: Shows no acute intracranial process - Medical Decision Making Chief medical diagnosis: Metabolic encephalopathy Differential diagnosis: Subdural hemorrhage, hypoglycemia, pneumonia Plan is to get EKG chest x-ray and CBC CMP CT head, tox screen and I'll reevaluate. Patient's lab work shows signs of end-stage renal disease but no hyperkalemia CT head is unremarkable patient is able to feed himself and is back to baseline discussed with patient and the patient's relatives also and patient back to retrieve dialysis. Initial verbal discharge instructions were given patient and patient's relatives agree with plan. Critical care attestation.: If time is entered above; I have spent that time in minutes in the direct care of this critically ill patient, excluding procedure time. ED Disposition Clinical Impression: ESRD (end stage renal disease), ESRD (end stage renal disease) on dialysis, Confusion and disorientation Hypertension Qualifiers: Hypertension type: essential hypertension Qualified Code(s): I10 - Essential ( primary) hypertension Disposition: DC-01 TO HOME OR SELFCARE Is pt being admited?: No Does the pt Need Aspirin: No Condition: Stable Instructions: Hypertension (ED), End-Stage Kidney Disease (ED) Referrals: SHANTELL LOERA MD [Staff Physician] - 3-5 Days
--- NOTE | 2017-04-15 10:17 | XRay Report ---
AP CHEST: HISTORY: Cough AP view of the chest demonstrates a normal mediastinal and cardiac contour with clear lungs and normal bony and soft tissue structures. IMPRESSION: Unremarkable AP chest.
[2017-04-15 10:43] VITALS: BP 178/79
== END 2017-04-15 10:44 | disposition home or self-care (01) ==
LOC: ED 05:56
DX: R41.0 Disorientation, unspecified (principal); E11.22 Type 2 diabetes mellitus with diabetic chronic kidney disease; I12.0 Hypertensive chronic kidney disease with stage 5 chronic kidney disease or end stage renal disease; N18.6 End stage renal disease; I25.2 Old myocardial infarction; M19.90 Unspecified osteoarthritis, unspecified site; F03.90 Unspecified dementia, unspecified severity, without behavioral disturbance, psychotic disturbance, mood disturbance, and anxiety; Z99.2 Dependence on renal dialysis; Z79.82 Long term (current) use of aspirin; Z79.899 Other long term (current) drug therapy
CPT/HCPCS: 36415; 70450; 71010; 80053; 80307; 81001; 82140; 82962; 83735; 84443; 85025; 93005; 93010; 96374; 99284; 99285; G0480; J1170; 80320

== ENCOUNTER 2017-04-15 17:20 | Emergency (ER) | payer MEDICARE ==
[2017-04-15 18:56] LABS: Basophils % (Auto) 0.2 % (0.0-1.8); Eosinophils % (Auto) 0.5 % (0.0-4.3); Hematocrit 31.7 % (35.5-45.6); Hemoglobin 10.4 gm/dl (11.8-15.2); Mean Corpuscular HGB Conc 33 % (32-34); Mean Corpuscular Hemoglobin 33 pg (28-32); Mean Corpuscular Volume 100 fl (84-94); Platelet Count 220 K/mm3 (140-440); Red Blood Count 3.18 M/mm3 (3.65-5.03); Red Cell Distribution Width 13.7 % (13.2-15.2); White Blood Count 7.1 K/mm3 (4.5-11.0)
[2017-04-15 19:11] LABS: Albumin 3.7 g/dL (3.9-5); Albumin/Globulin Ratio 1.3 %; Bilirubin,Total 0.4 mg/dL (0.1-1.2); Calcium 9.6 mg/dL (8.4-10.2); Chloride 101.1 mmol/L (98-107); Magnesium 2.4 mg/dL (1.7-2.3); Potassium 4.4 mmol/L (3.6-5.0); Total Protein 6.5 g/dL (6.3-8.2)
--- NOTE | 2017-04-15 19:42 | Emergency Department Report ---
ED Altered Mental Status HPI - General Chief Complaint: Neuro Symptoms/Deficit Stated Complaint: LETHARGIC Time Seen by Provider: 04/15/17 19:28 Source: patient, family, EMS Mode of arrival: Stretcher Limitations: Altered Mental Status, Physical Limitation - History of Present Illness Initial Comments: PT HAS ALTERED MENTAL STATUS THIS AM AND BROUGHT TO ED FOR ASSESSMENT. PT WAS DISCHARGED TO DIALYSIS BUT AFTER DIALYSIS HE RETURNED HOME WHERE HIS FELT THAT HE WAS NOT ACTING HIMSELF. HE WAS BROUGHT FOR THE SECOND TIME FOR EVALUATION. PER HIS SIFE, HE HAS BEEN GETTING WEAKER AND WEAKER SINCE HE STARTED DIALYSIS AND HAS DEMENTIA. MD Complaint: altered mental status -: Gradual Severity: mild Consistency of Symptoms: waxing and waning Context: other (RENAL FAILURE AND DIALYSIS) Associated Symptoms: denies other symptoms - Related Data Home Medications Medication Instructions Recorded Confirmed Last Taken Allopurinol [Zyloprim] 300 mg PO QDAY 01/12/16 04/15/17 1 Day Ago ~04/14/17 Donepezil HCl 10 mg PO HS 01/12/16 04/15/17 1 Day Ago ~04/14/17 Sevelamer Carbonate [Renvela] 800 mg PO TIDWM 01/12/16 04/15/17 1 Day Ago ~04/14/17 Sodium Bicarbonate 650 mg PO BID 01/12/16 04/15/17 1 Day Ago ~04/14/17 Vitamin B Complex [B Complex] 1 each PO DAILY 01/12/16 04/15/17 1 Day Ago ~04/14/17 Aspirin [Adult Low Dose Aspirin EC] 81 mg PO QDAY 10/05/16 04/15/17 1 Day Ago ~04/14/17 AtorvaSTATin [Lipitor] 80 mg PO QDAY 10/05/16 04/15/17 1 Day Ago ~04/14/17 Gabapentin [Neurontin] 300 mg PO BID 10/05/16 04/15/17 1 Day Ago ~04/14/17 Losartan [Cozaar] 50 mg PO QDAY 10/05/16 04/15/17 1 Day Ago ~04/14/17 Metoprolol [Lopressor TAB] 25 mg PO BID 10/05/16 04/15/17 1 Day Ago ~04/14/17 Vitamin D3 Complete Caplet 1 cap PO QDAY 10/05/16 04/15/17 1 Day Ago ~04/14/17 Previous Rx's Medication Instructions Recorded Last Taken Type amLODIPine [Norvasc] 10 mg PO QDAY #30 tablet 12/09/13 1 Day Ago Rx ~04/14/17 HYDROcodone/APAP 5-325 [[place] 1 each PO Q6HR PRN #14 tablet 10/05/16 1 Day Ago Rx 5/325] ~04/14/17 Allergies Allergy/AdvReac Type Severity Reaction Status Date / Time No Known Allergies Allergy Verified 04/15/17 17:21 ED Review of Systems ROS: Stated complaint: LETHARGIC Other details as noted in HPI Constitutional: denies: chills, fever Eyes: denies: eye pain, eye discharge, vision change ENT: denies: ear pain, throat pain Respiratory: denies: cough, shortness of breath, wheezing Cardiovascular: denies: chest pain, palpitations Endocrine: no symptoms reported Gastrointestinal: denies: abdominal pain, nausea, diarrhea Genitourinary: denies: urgency, dysuria Musculoskeletal: denies: back pain, joint swelling, arthralgia Skin: denies: rash, lesions Neurological: weakness. denies: headache, paresthesias Psychiatric: denies: anxiety, depression Hematological/Lymphatic: denies: easy bleeding, easy bruising ED Past Medical Hx - Past Medical History Previous Medical History?: Yes Hx Hypertension: Yes Hx Heart Attack/AMI: Yes Hx Diabetes: Yes Hx Renal Disease: Yes (t,thr,sat dialysis) Hx Arthritis: Yes Hx Dementia: Yes (Dx of early dementia 2013) Additional medical history: echo 12/2015, EF 50% diastolic dysfunction see report for valve findings - Surgical History Additional Surgical History: dialysis graft - Social History Smoking Status: Never Smoker Substance Use Type: None - Medications Home Medications: Home Medications Medication Instructions Recorded Confirmed Last Taken Type amLODIPine [Norvasc] 10 mg PO QDAY #30 tablet 12/09/13 04/15/17 1 Day Ago Rx ~04/14/17 Allopurinol [Zyloprim] 300 mg PO QDAY 01/12/16 04/15/17 1 Day Ago History ~04/14/17 Donepezil HCl 10 mg PO HS 01/12/16 04/15/17 1 Day Ago History ~04/14/17 Sevelamer Carbonate [Renvela] 800 mg PO TIDWM 01/12/16 04/15/17 1 Day Ago History ~04/14/17 Sodium Bicarbonate 650 mg PO BID 01/12/16 04/15/17 1 Day Ago History ~04/14/17 Vitamin B Complex [B Complex] 1 each PO DAILY 01/12/16 04/15/17 1 Day Ago History ~04/14/17 Aspirin [Adult Low Dose Aspirin EC] 81 mg PO QDAY 10/05/16 04/15/17 1 Day Ago History ~04/14/17 AtorvaSTATin [Lipitor] 80 mg PO QDAY 10/05/16 04/15/17 1 Day Ago History ~04/14/17 Gabapentin [Neurontin] 300 mg PO BID 10/05/16 04/15/17 1 Day Ago History ~04/14/17 HYDROcodone/APAP 5-325 [[place] 1 each PO Q6HR PRN #14 tablet 10/05/16 04/15/17 1 Day Ago Rx 5/325] ~04/14/17 Losartan [Cozaar] 50 mg PO QDAY 10/05/16 04/15/17 1 Day Ago History ~04/14/17 Metoprolol [Lopressor TAB] 25 mg PO BID 10/05/16 04/15/17 1 Day Ago History ~04/14/17 Vitamin D3 Complete Caplet 1 cap PO QDAY 10/05/16 04/15/17 1 Day Ago History ~04/14/17 ED Physical Exam - General Limitations: Physical Limitation (PT IS WEAK AFTER DIALYSIS) General appearance: alert, in no apparent distress - Head Head exam: Present: atraumatic, normocephalic - Eye Eye exam: Present: normal appearance, EOMI - ENT ENT exam: Present: mucous membranes moist - Neck Neck exam: Present: normal inspection, full ROM - Respiratory Respiratory exam: Present: normal lung sounds bilaterally. Absent: respiratory distress, wheezes - Cardiovascular Cardiovascular Exam: Present: regular rate, normal rhythm, systolic murmur. Absent: diastolic murmur, rubs, gallop - GI/Abdominal GI/Abdominal exam: Present: soft, normal bowel sounds. Absent: distended, tenderness, guarding - Rectal Rectal exam: Present: deferred - Extremities Exam Extremities exam: Present: normal inspection, full ROM - Back Exam Back exam: Present: normal inspection - Neurological Exam Neurological exam: Present: alert, oriented X3, abnormal gait (NORMALLY USES WALKER AND ASSISTANCE) - Psychiatric Psychiatric exam: Present: normal affect, normal mood - Skin Skin exam: Present: warm, dry, intact, normal color. Absent: rash ED Course Vital Signs 04/15/17 04/15/17 04/15/17 17:22 17:49 17:51 Temperature 99 F Pulse Rate 84 83 Respiratory 18 18 12 Rate Blood Pressure 144/64 Blood Pressure 155/71 [Right] O2 Sat by Pulse 99 96 97 Oximetry - Lab Data Result diagrams: 04/15/17 18:32 04/15/17 18:32 Lab Results 04/15/17 04/15/17 04/15/17 Range/Units 18:32 18:32 18:32 WBC 7.1 (4.5-11.0) K/mm3 RBC 3.18 L (3.65-5.03) M/mm3 Hgb 10.4 L (11.8-15.2) gm/dl Hct 31.7 L (35.5-45.6) % MCV 100 H (84-94) fl MCH 33 H (28-32) pg MCHC 33 (32-34) % RDW 13.7 (13.2-15.2) % Plt Count 220 (140-440) K/mm3 Lymph % (Auto) 7.3 L (13.4-35.0) % [place] % (Auto) 9.6 H (0.0-7.3) % Eos % (Auto) 0.5 (0.0-4.3) % Baso % (Auto) 0.2 (0.0-1.8) % Lymph # 0.5 L (1.2-5.4) K/mm3 [place] # 0.7 (0.0-0.8) K/mm3 Eos # 0.0 (0.0-0.4) K/mm3 Baso # 0.0 (0.0-0.1) K/mm3 Seg Neutrophils % 82.4 H (40.0-70.0) % Seg Neutrophils # 5.9 (1.8-7.7) K/mm3 Sodium 145 (137-145) mmol/L Potassium 4.4 (3.6-5.0) mmol/L Chloride 101.1 (98-107) mmol/L Carbon Dioxide 33 H (22-30) mmol/L Anion Gap 15 mmol/L BUN 18 (9-20) mg/dL Creatinine 4.4 H (0.8-1.5) mg/dL Estimated GFR 16 ml/min BUN/Creatinine Ratio 4 % Glucose 213 H (75-100) mg/dL Lactic Acid 1.90 (0.7-2.0) mmol/L Calcium 9.6 (8.4-10.2) mg/dL Magnesium 2.40 H (1.7-2.3) mg/dL Total Bilirubin 0.40 (0.1-1.2) mg/dL AST 9 (5-40) units/L ALT 5 L (7-56) units/L Alkaline Phosphatase 47 (35-129) units/L Total Protein 6.5 (6.3-8.2) g/dL Albumin 3.7 L (3.9-5) g/dL Albumin/Globulin Ratio 1.3 % TSH (0.270-4.200) mlU/mL Salicylates (2.8-20.0) mg/dL Acetaminophen (10.0-30.0) ug/mL Plasma/Serum Alcohol (0-0.07) gm% 04/15/17 04/15/17 04/15/17 Range/Units 18:32 18:32 18:32 WBC (4.5-11.0) K/mm3 RBC (3.65-5.03) M/mm3 Hgb (11.8-15.2) gm/dl Hct (35.5-45.6) % MCV (84-94) fl MCH (28-32) pg MCHC (32-34) % RDW (13.2-15.2) % Plt Count (140-440) K/mm3 Lymph % (Auto) (13.4-35.0) % [place] % (Auto) (0.0-7.3) % Eos % (Auto) (0.0-4.3) % Baso % (Auto) (0.0-1.8) % Lymph # (1.2-5.4) K/mm3 [place] # (0.0-0.8) K/mm3 Eos # (0.0-0.4) K/mm3 Baso # (0.0-0.1) K/mm3 Seg Neutrophils % (40.0-70.0) % Seg Neutrophils # (1.8-7.7) K/mm3 Sodium (137-145) mmol/L Potassium (3.6-5.0) mmol/L Chloride (98-107) mmol/L Carbon Dioxide (22-30) mmol/L Anion Gap mmol/L BUN (9-20) mg/dL Creatinine (0.8-1.5) mg/dL Estimated GFR ml/min BUN/Creatinine Ratio % Glucose (75-100) mg/dL Lactic Acid (0.7-2.0) mmol/L Calcium (8.4-10.2) mg/dL Magnesium (1.7-2.3) mg/dL Total Bilirubin (0.1-1.2) mg/dL AST (5-40) units/L ALT (7-56) units/L Alkaline Phosphatase (35-129) units/L Total Protein (6.3-8.2) g/dL Albumin (3.9-5) g/dL Albumin/Globulin Ratio % TSH 1.360 (0.270-4.200) mlU/mL Salicylates < 0.3 L (2.8-20.0) mg/dL Acetaminophen < 15.0 (10.0-30.0) ug/mL Plasma/Serum Alcohol (0-0.07) gm% 11/20/17 Range/Units 18:32 WBC (4.5-11.0) K/mm3 RBC (3.65-5.03) M/mm3 Hgb (11.8-15.2) gm/dl Hct (35.5-45.6) % MCV (84-94) fl MCH (28-32) pg MCHC (32-34) % RDW (13.2-15.2) % Plt Count (140-440) K/mm3 Lymph % (Auto) (13.4-35.0) % [place] % (Auto) (0.0-7.3) % Eos % (Auto) (0.0-4.3) % Baso % (Auto) (0.0-1.8) % Lymph # (1.2-5.4) K/mm3 [place] # (0.0-0.8) K/mm3 Eos # (0.0-0.4) K/mm3 Baso # (0.0-0.1) K/mm3 Seg Neutrophils % (40.0-70.0) % Seg Neutrophils # (1.8-7.7) K/mm3 Sodium (137-145) mmol/L Potassium (3.6-5.0) mmol/L Chloride (98-107) mmol/L Carbon Dioxide (22-30) mmol/L Anion Gap mmol/L BUN (9-20) mg/dL Creatinine (0.8-1.5) mg/dL Estimated GFR ml/min BUN/Creatinine Ratio % Glucose (75-100) mg/dL Lactic Acid (0.7-2.0) mmol/L Calcium (8.4-10.2) mg/dL Magnesium (1.7-2.3) mg/dL Total Bilirubin (0.1-1.2) mg/dL AST (5-40) units/L ALT (7-56) units/L Alkaline Phosphatase (35-129) units/L Total Protein (6.3-8.2) g/dL Albumin (3.9-5) g/dL Albumin/Globulin Ratio % TSH (0.270-4.200) mlU/mL Salicylates (2.8-20.0) mg/dL Acetaminophen (10.0-30.0) ug/mL Plasma/Serum Alcohol < 0.01 (0-0.07) gm% Critical care attestation.: If time is entered above; I have spent that time in minutes in the direct care of this critically ill patient, excluding procedure time. ED Disposition Is pt being admited?: Yes Condition: Stable Referrals: PRIMARY CARE, [Primary Care Provider] - 3-5 Days Time of Disposition: 19:38 (CASE REVIEWED WITH DR MUÑIZ FOR ADMISSION, HE FEELS PT IS BACK TO HIS [facility] AND HE PLANS TO DISCHARGE THE PT)
[2017-04-15 20:19] LABS: Urine Drugs of Abuse Note Disclamer
[2017-04-15] MEDS ORDERED: DILAUDID IV PRN (20:25)
--- NOTE | 2017-04-15 20:25 | Event Note ---
Date: 04/15/17 Admitted for AMS Patient evaluated Alert and oriented Labs reviewed Had dialysis today Encephalopathy sec to volume depletion Resolved F/u with nephrology
[2017-04-15 21:28] LABS: Bilirubin,Urine Negative (Negative); Blood,Urine Negative (Negative); Ketones,Urine Negative (Negative)
[2017-04-15 21:29] LABS: Leukocyte Esterase,Urine Negative (Negative); Nitrite,Urine Negative (Negative); Urobilinogen,Urine < 2.0 mg/dL (<2.0)
[2017-04-15 22:08] VITALS: BP 135/63
== END 2017-04-15 22:08 ==
LOC: ED 17:20
DX: R51 Headache (principal); R46.81 Obsessive-compulsive behavior; I10 Essential (primary) hypertension; I25.2 Old myocardial infarction; E11.9 Type 2 diabetes mellitus without complications
CPT/HCPCS: 36415; 80053; 80307; 81001; 82140; 82962; 83735; 84443; 85025; 93005; 93010; 96374; 99284; G0480; J1170; 80320

== ENCOUNTER 2017-10-16 09:36 | Emergency (ER) | payer MEDICARE, OTHER ==
[2017-10-16 11:38] LABS: Basophils % (Auto) 0.4 % (0.0-1.8); Eosinophils # (Auto) 0.1 K/mm3 (0.0-0.4); Eosinophils % (Auto) 1.5 % (0.0-4.3); Hemoglobin 12.5 gm/dl (11.8-15.2); Lymphocytes # (Auto) 1.2 K/mm3 (1.2-5.4); Mean Corpuscular HGB Conc 34 % (32-34); Mean Corpuscular Hemoglobin 33 pg (28-32); Mean Corpuscular Volume 97 fl (84-94); Monocytes # (Auto) 0.5 K/mm3 (0.0-0.8); Monocytes % (Auto) 8.6 % (0.0-7.3); Platelet Count 239 K/mm3 (140-440); Red Blood Count 3.81 M/mm3 (3.65-5.03); Red Cell Distribution Width 13.9 % (13.2-15.2)
[2017-10-16 11:54] LABS: Albumin 3.5 g/dL (3.9-5); Calcium 10.3 mg/dL (8.4-10.2)
[2017-10-16] MEDS ORDERED: NACL 0.9% 500 ML 500 ML IV ONE (13:16)
[2017-10-16] MEDS ORDERED: MORPHINE IV ONE (13:16)
[2017-10-16] MEDS ORDERED: ZOFRAN IV ONE (13:17)
--- NOTE | 2017-10-16 13:21 | Emergency Department Report ---
Juani Doc - Documentation Documentation: Patient presents to [facility] department with his . From his primary care's office for evaluation of left arm pain and dehydration. states that the patient has dementia and is unable to communicate with us. Patient is on dialysis and gets dialyzed on Saturday, and Saturdays and had a full dialysis yesterday. Patient is not drinking well at home. states that she is noticed over the last week that the patient's left arm has become cool to touch and knows that his fingernails are blue in nature. She also has noticed any movement of that warm causes pain. On exam the patient's left fingers are cool to touch when compared to the right and the patient grimaces in pain with movement of that extremity. Care will be taken over by the MARTIN with input and follow through from as well.
--- NOTE | 2017-10-16 16:41 | Cat Scan Report ---
FINAL REPORT EXAM: CT ANGIO UPPER EXTREMITY LT HISTORY: cool extremity eval for arterial issue COMPARISON: None. TECHNIQUE: Multiple contiguous axial images were obtained through the left forearm after administration of IV contrast. Reformatted sagittal and coronal images were available for review. Reformatted maximal intensity projection images were also provided. FINDINGS: There is a heavily calcified brachial artery without stenosis or aneurysm. The radial and ulnar arteries are also heavily calcified but are grossly patent there is no significant occlusion or stenosis.. The interosseous artery is patent. The deep in superficial plantar arches are also possibly calcified but are grossly patent. The bony structures are intact without acute fracture or dislocation. The muscles the forearm and hand are intact. There is mild soft tissue edema. IMPRESSION: Heavily calcified arteries of the left forearm without stenosis or occlusion.
--- NOTE | 2017-10-16 16:56 | Emergency Department Report ---
ED Extremity Problem HPI - General Chief complaint: Medical Clearance Stated complaint: DEHYDRATION/SENT BY PHYSICIAN Time Seen by Provider: 10/16/17 13:06 Source: patient, family Mode of arrival: Wheelchair Limitations: Physical Limitation - History of Present Illness Initial comments: 67-year-old male past medical history dialysis Saturday sent by primary care physician for evaluation in the ED. Patient is severely demented and unable to provide a history. Patient mumbles but is unable to provide detailed answers to any questions. Per patient's who communicated with Dr. Reyes patient has exhibited slightly discolored left upper extremity for several days. Not exactly sure how long the patient may have been developing this. No reports of recent trauma. Patient has a fistula left arm. Reports of nausea vomiting fever or chills. MD Complaint: cold extremity -: days(s) Location: left, upper extremity History of Same: No Severity scale (0 -10): 4 Consistency: constant - Related Data Home Medications Medication Instructions Recorded Confirmed Last Taken Allopurinol [Zyloprim] 300 mg PO QDAY 01/12/16 04/15/17 1 Day Ago ~04/14/17 Donepezil HCl 10 mg PO HS 01/12/16 04/15/17 1 Day Ago ~04/14/17 Sevelamer Carbonate [Renvela] 800 mg PO TIDWM 01/12/16 04/15/17 1 Day Ago ~04/14/17 Sodium Bicarbonate 650 mg PO BID 01/12/16 04/15/17 1 Day Ago ~04/14/17 Vitamin B Complex [B Complex] 1 each PO DAILY 01/12/16 04/15/17 1 Day Ago ~04/14/17 Aspirin [Adult Low Dose Aspirin EC] 81 mg PO QDAY 10/05/16 04/15/17 1 Day Ago ~04/14/17 AtorvaSTATin [Lipitor] 80 mg PO QDAY 10/05/16 04/15/17 1 Day Ago ~04/14/17 Gabapentin [Neurontin] 300 mg PO BID 10/05/16 04/15/17 1 Day Ago ~04/14/17 Losartan [Cozaar] 50 mg PO QDAY 10/05/16 04/15/17 1 Day Ago ~04/14/17 Metoprolol [Lopressor TAB] 25 mg PO BID 10/05/16 04/15/17 1 Day Ago ~04/14/17 Vitamin D3 Complete Caplet 1 cap PO QDAY 10/05/16 04/15/17 1 Day Ago ~04/14/17 Previous Rx's Medication Instructions Recorded Last Taken Type amLODIPine [Norvasc] 10 mg PO QDAY #30 tablet 12/09/13 1 Day Ago Rx ~04/14/17 HYDROcodone/APAP 5-325 [[place] 1 each PO Q6HR PRN #14 tablet 10/05/16 1 Day Ago Rx 5/325] ~04/14/17 Oxycodone HCl/Acetaminophen 1 each PO Q6HR PRN #20 tablet 04/15/17 Unknown Rx [Percocet 2.5/325 mg] Allergies Allergy/AdvReac Type Severity Reaction Status Date / Time shellfish derived Allergy Swelling Verified 10/16/17 09:54 ED Review of Systems ROS: Stated complaint: DEHYDRATION/SENT BY PHYSICIAN Other details as noted in HPI Constitutional: denies: chills, fever Eyes: denies: eye pain, eye discharge, vision change ENT: denies: ear pain, throat pain Respiratory: denies: cough, shortness of breath, wheezing Cardiovascular: denies: chest pain, palpitations Endocrine: no symptoms reported Gastrointestinal: denies: abdominal pain, nausea, diarrhea Genitourinary: denies: urgency, dysuria Musculoskeletal: denies: back pain, joint swelling, arthralgia Skin: as per HPI. denies: rash, lesions Neurological: denies: headache, weakness, paresthesias Psychiatric: denies: anxiety, depression Hematological/Lymphatic: denies: easy bleeding, easy bruising ED Past Medical Hx - Past Medical History Hx Hypertension: Yes Hx Heart Attack/AMI: Yes Hx Diabetes: Yes Hx Renal Disease: Yes (t,thr,sat dialysis) Hx Arthritis: Yes Hx Dementia: Yes (Dx of early dementia 2013) Additional medical history: echo 12/2015, EF 50% diastolic dysfunction see report for valve findings - Surgical History Additional Surgical History: dialysis graft - Social History Smoking Status: Never Smoker Substance Use Type: None - Medications Home Medications: Home Medications Medication Instructions Recorded Confirmed Last Taken Type amLODIPine [Norvasc] 10 mg PO QDAY #30 tablet 12/09/13 04/15/17 1 Day Ago Rx ~04/14/17 Allopurinol [Zyloprim] 300 mg PO QDAY 01/12/16 04/15/17 1 Day Ago History ~04/14/17 Donepezil HCl 10 mg PO HS 01/12/16 04/15/17 1 Day Ago History ~04/14/17 Sevelamer Carbonate [Renvela] 800 mg PO TIDWM 01/12/16 04/15/17 1 Day Ago History ~04/14/17 Sodium Bicarbonate 650 mg PO BID 01/12/16 04/15/17 1 Day Ago History ~04/14/17 Vitamin B Complex [B Complex] 1 each PO DAILY 01/12/16 04/15/17 1 Day Ago History ~04/14/17 Aspirin [Adult Low Dose Aspirin EC] 81 mg PO QDAY 10/05/16 04/15/17 1 Day Ago History ~04/14/17 AtorvaSTATin [Lipitor] 80 mg PO QDAY 10/05/16 04/15/17 1 Day Ago History ~04/14/17 Gabapentin [Neurontin] 300 mg PO BID 10/05/16 04/15/17 1 Day Ago History ~04/14/17 HYDROcodone/APAP 5-325 [[place] 1 each PO Q6HR PRN #14 tablet 10/05/16 04/15/17 1 Day Ago Rx 5/325] ~04/14/17 Losartan [Cozaar] 50 mg PO QDAY 10/05/16 04/15/17 1 Day Ago History ~04/14/17 Metoprolol [Lopressor TAB] 25 mg PO BID 10/05/16 04/15/17 1 Day Ago History ~04/14/17 Vitamin D3 Complete Caplet 1 cap PO QDAY 10/05/16 04/15/17 1 Day Ago History ~04/14/17 Oxycodone HCl/Acetaminophen 1 each PO Q6HR PRN #20 tablet 04/15/17 Unknown Rx [Percocet 2.5/325 mg] ED Physical Exam - General Limitations: Physical Limitation General appearance: alert, in no apparent distress - Head Head exam: Present: atraumatic, normocephalic - Eye Eye exam: Present: normal appearance, PERRL, EOMI - ENT ENT exam: Present: mucous membranes moist - Neck Neck exam: Present: normal inspection - Respiratory Respiratory exam: Present: normal lung sounds bilaterally. Absent: respiratory distress - Cardiovascular Cardiovascular Exam: Present: regular rate, normal rhythm. Absent: systolic murmur, diastolic murmur, rubs, gallop - GI/Abdominal GI/Abdominal exam: Present: soft, normal bowel sounds - Rectal Rectal exam: Present: deferred - Extremities Exam Extremities exam: Present: normal inspection - Expanded Upper Extremity Exam Left Upper Arm exam: Present: other (fistula with palpable thrill left upper arm) Forearm Wrist exam: Present: normal inspection Hand Wrist exam: Present: normal inspection, other (slight bluish discoloration of distal fingertips. Distal capillary refill approximately 2-3 seconds fingers.) Vascular: Present: radial pulse (palpable distal radial pulse left hand/wrist) - Back Exam Back exam: Present: normal inspection - Neurological Exam Neurological exam: Present: alert, oriented X3 - Psychiatric Psychiatric exam: Present: normal affect, normal mood - Skin Skin exam: Present: warm, dry, intact, normal color. Absent: rash ED Course Vital Signs 10/16/17 10/16/17 10/16/17 09:55 13:25 16:48 Temperature 98.6 F 98.6 F 98.2 F Pulse Rate 74 73 72 Respiratory 16 15 15 Rate Blood Pressure 114/71 Blood Pressure 149/85 173/86 [Right] O2 Sat by Pulse 100 100 100 Oximetry ED Medical Decision Making - Lab Data Result diagrams: 10/16/17 11:13 10/16/17 11:13 - Medical Decision Making A/P: Peripheral vascular disease left upper extremity 1-CT angiogram shows no arterial occlusion left upper extremity, chronic calcifications in extremity. I advised patient's that he should continue to take aspirin on a daily basis as he usually does. No acute occlusion as per CT report 2-case discussed with Dr. Reyes who also examined the patient. It is possible patient has some degree of shunt secondary to AV fistula in left upper extremity 3-increase in patient's creatinine noted on review of labs. Patient is already on dialysis. I emphasized the importance of dialysis follow-up to the patient' s . 4-I advised patient's to return patient to the ED if he develops fever chills further rapid discoloration of left upper extremity or if he does not go to his regularly scheduled dialysis session tomorrow Critical care attestation.: If time is entered above; I have spent that time in minutes in the direct care of this critically ill patient, excluding procedure time. ED Disposition Clinical Impression: Peripheral vascular disease Disposition: DC-01 TO HOME OR SELFCARE Is pt being admited?: No Does the pt Need Aspirin: No Condition: Stable Instructions: Peripheral Vascular Disorders (ED) Referrals: BAYRON AYALA DO [Staff Physician] - 3-5 Days Forms: Accompanied Note Time of Disposition: 16:56
[2017-10-16 17:20] VITALS: BP 161/81
== END 2017-10-16 17:19 | disposition home or self-care (01) ==
LOC: ED 09:36
DX: I73.9 Peripheral vascular disease, unspecified (principal); I12.0 Hypertensive chronic kidney disease with stage 5 chronic kidney disease or end stage renal disease; E11.22 Type 2 diabetes mellitus with diabetic chronic kidney disease; N18.6 End stage renal disease; M19.90 Unspecified osteoarthritis, unspecified site; I25.2 Old myocardial infarction; Z99.2 Dependence on renal dialysis; Z91.013 Allergy to seafood
CPT/HCPCS: 36415; 73206; 80053; 85025; 96374; 96375; 99284; J2270; J2405; J7040; Q9967

== ENCOUNTER 2017-11-24 23:05 | Emergency (ER) | payer MEDICARE, OTHER ==
[2017-11-24] MEDS ORDERED: CORDARONE IV ONE (23:15)
[2017-11-24] MEDS ORDERED: ADRENALIN ONE (23:15)
--- NOTE | 2017-11-24 23:31 | Emergency Department Report ---
ED CPR HPI - General Stated Complaint: CARDIAC ARREST Time Seen by Provider: 11/24/17 23:24 - History of Present Illness Initial Comments: 67-year-old chronically ill end-stage renal disease patient with multiple comorbid entities, including coronary artery disease, chronic congestive heart failure, dementia, diabetes mellitus, 3 times weekly dialysis, brought in by EMS in cardiac arrest, with family noting that they had put patient to bed at approximately 10:15, and found him unresponsive at 10:30 PM, approximately 30 minutes prior to arrival, and called EMS. EMS found patient without pulse, and apparent fibrillation, was defibrillated twice, with minimal organized rhythm, apparently agonal, and Combitube was placed, intraosseous line placement initiated in left pretibial lower extremity, and patient was given 4 rounds of epinephrine, as well as 1 ampule of bicarbonate, with no signs of organized activity or palpable pulse by time of arrival. Patient arrived in the emergency department unresponsive, being ventilated manually through Combitube, by bag valve mask, with good auscultation of breath sounds on both sides, with good palpable pulse with cardiac compressions, but on radiation monitor was Agonal rhythm, approximately 30-40 bpm, but no palpable pulse with this unaided rhythm. Pupils were fixed, round, midpoint, 4-5 mm, unresponsive. [id number] ventilation was continued, CPR was continued, patient was given a total of 4 additional rounds of epinephrine, with continued high quality compressions, 300 mg of amiodarone, and with ultrasound cardiac checks shows minimal cardiac activity, with no effective injection of blood, no valvular motion identified. After fourth round of epinephrine, there was no signs of visible improvement of cardiac activity, agonal rhythm persisted at 30 bpm, with no spontaneous pulse palpable at this, and with determination of futility of response despite effective high-quality CPR, efforts were ceased, and patient was pronounced at 11:15 PM. - Related Data Home Medications Medication Instructions Recorded Confirmed Last Taken Allopurinol [Zyloprim] 300 mg PO QDAY 01/12/16 04/15/17 1 Day Ago ~04/14/17 Donepezil HCl 10 mg PO HS 01/12/16 04/15/17 1 Day Ago ~04/14/17 Sevelamer Carbonate [Renvela] 800 mg PO TIDWM 01/12/16 04/15/17 1 Day Ago ~04/14/17 Sodium Bicarbonate 650 mg PO BID 01/12/16 04/15/17 1 Day Ago ~04/14/17 Vitamin B Complex [B Complex] 1 each PO DAILY 01/12/16 04/15/17 1 Day Ago ~04/14/17 Aspirin [Adult Low Dose Aspirin EC] 81 mg PO QDAY 10/05/16 04/15/17 1 Day Ago ~04/14/17 AtorvaSTATin [Lipitor] 80 mg PO QDAY 10/05/16 04/15/17 1 Day Ago ~04/14/17 Gabapentin [Neurontin] 300 mg PO BID 10/05/16 04/15/17 1 Day Ago ~04/14/17 Losartan [Cozaar] 50 mg PO QDAY 10/05/16 04/15/17 1 Day Ago ~04/14/17 Metoprolol [Lopressor TAB] 25 mg PO BID 10/05/16 04/15/17 1 Day Ago ~04/14/17 Vitamin D3 Complete Caplet 1 cap PO QDAY 10/05/16 04/15/17 1 Day Ago ~04/14/17 Previous Rx's Medication Instructions Recorded Last Taken Type amLODIPine [Norvasc] 10 mg PO QDAY #30 tablet 12/09/13 1 Day Ago Rx ~04/14/17 HYDROcodone/APAP 5-325 [[place] 1 each PO Q6HR PRN #14 tablet 10/05/16 1 Day Ago Rx 5/325] ~04/14/17 Oxycodone HCl/Acetaminophen 1 each PO Q6HR PRN #20 tablet 04/15/17 Unknown Rx [Percocet 2.5/325 mg] Allergies Allergy/AdvReac Type Severity Reaction Status Date / Time shellfish derived Allergy Swelling Verified 10/16/17 09:54 ED Review of Systems ROS: Stated complaint: CARDIAC ARREST Other details as noted in HPI ED Past Medical Hx - Past Medical History Hx Hypertension: Yes Hx Heart Attack/AMI: Yes Hx Diabetes: Yes Hx Renal Disease: Yes (t,thr,sat dialysis) Hx Arthritis: Yes Hx Dementia: Yes (Dx of early dementia 2013) Additional medical history: echo 12/2015, EF 50% diastolic dysfunction see report for valve findings - Surgical History Additional Surgical History: dialysis graft - Social History Smoking Status: Never Smoker Substance Use Type: None - Medications Home Medications: Home Medications Medication Instructions Recorded Confirmed Last Taken Type amLODIPine [Norvasc] 10 mg PO QDAY #30 tablet 12/09/13 04/15/17 1 Day Ago Rx ~04/14/17 Allopurinol [Zyloprim] 300 mg PO QDAY 01/12/16 04/15/17 1 Day Ago History ~04/14/17 Donepezil HCl 10 mg PO HS 01/12/16 04/15/17 1 Day Ago History ~04/14/17 Sevelamer Carbonate [Renvela] 800 mg PO TIDWM 01/12/16 04/15/17 1 Day Ago History ~04/14/17 Sodium Bicarbonate 650 mg PO BID 01/12/16 04/15/17 1 Day Ago History ~04/14/17 Vitamin B Complex [B Complex] 1 each PO DAILY 01/12/16 04/15/17 1 Day Ago History ~04/14/17 Aspirin [Adult Low Dose Aspirin EC] 81 mg PO QDAY 10/05/16 04/15/17 1 Day Ago History ~04/14/17 AtorvaSTATin [Lipitor] 80 mg PO QDAY 10/05/16 04/15/17 1 Day Ago History ~04/14/17 Gabapentin [Neurontin] 300 mg PO BID 10/05/16 04/15/17 1 Day Ago History ~04/14/17 HYDROcodone/APAP 5-325 [[place] 1 each PO Q6HR PRN #14 tablet 10/05/16 04/15/17 1 Day Ago Rx 5/325] ~04/14/17 Losartan [Cozaar] 50 mg PO QDAY 10/05/16 04/15/17 1 Day Ago History ~04/14/17 Metoprolol [Lopressor TAB] 25 mg PO BID 10/05/16 04/15/17 1 Day Ago History ~04/14/17 Vitamin D3 Complete Caplet 1 cap PO QDAY 10/05/16 04/15/17 1 Day Ago History ~04/14/17 Oxycodone HCl/Acetaminophen 1 each PO Q6HR PRN #20 tablet 04/15/17 Unknown Rx [Percocet 2.5/325 mg] Critical care attestation.: If time is entered above; I have spent that time in minutes in the direct care of this critically ill patient, excluding procedure time. ED Disposition Condition: Stable Referrals: PRIMARY CARE, [Primary Care Provider] - 3-5 Days
== END 2017-11-25 04:05 ==
LOC: ED 23:05
DX: I46.9 Cardiac arrest, cause unspecified (principal); E11.22 Type 2 diabetes mellitus with diabetic chronic kidney disease; I12.0 Hypertensive chronic kidney disease with stage 5 chronic kidney disease or end stage renal disease; N18.6 End stage renal disease; I25.2 Old myocardial infarction; M19.90 Unspecified osteoarthritis, unspecified site; F03.90 Unspecified dementia, unspecified severity, without behavioral disturbance, psychotic disturbance, mood disturbance, and anxiety; Z79.899 Other long term (current) drug therapy; Z99.2 Dependence on renal dialysis; Z91.013 Allergy to seafood
CPT/HCPCS: 92950; 99285; J0171; J0282